=== PATIENT | female | born 1980 | race Two or more races ===

== ENCOUNTER 2017-03-07 13:05 | Emergency (ER) | payer BC ==
[~2017-03-07 13:05] MED LIST: BACTRIM DS TAB1 EAC2 PO; PRILOSEC OTC20 M1 PO
[2017-03-07 14:11] LABS: BASO % 0.1 % (0-2); EOS % 0.6 % (0-7); EOSINOPHIL ABSOLUTE COUNT 0.1 tho/cmm (0.0-0.7); HGB-HEMOGLOBIN 15.9 gm/dl (12.0-15.5); IMMATURE GRANULOCYTES ABSOLUTE 0.06 tho/cmm (0-0.03); IMMATURE GRANULOCYTES PERCENT 0.4 % (0-0.3); LYMPH % 4.4 % (20-45); LYMPH ABSOLUTE COUNT 0.7 tho/cmm (0.8-4.5); MCH (MEAN CORPUSCULAR HGB) 30.4 pg (28.0-32.0); MCHC MEAN CORPUSCULAR HGB CONC 35.3 % (32.0-36.0); MEAN PLATELET VOLUME 10.2 cmc (9.4-12.4); MONO % 4.4 % (0-12); MONOCYTE ABSOLUTE COUNT 0.7 tho/cmm (0.0-1.2); NEUTROPHIL ABSOLUTE COUNT 14.4 tho/cmm (1.6-8.0); NEUTROPHIL-AUTOMATED 14.4 tho/cmm (1.6-8.0); NEUTROPHILS % 90.1 % (40-80); PLATELET COUNT 251 tho/cmm (150-450); RED BLOOD COUNT 5.23 mil/cmm (4.00-5.20); RED CELL DISTRIBUTION WIDTH 12.6 % (12.4-16.4)
[2017-03-07 14:31] LABS: ALBUMIN 4.5 g/dl (3.5-5.0); ALKALINE PHOSPHATASE 79 U/L (33-138); ALT/SGPT 26 U/L (12-78); ANION GAP 14 mmol/L (0-20); AST/SGOT 19 U/L (10-40); BILIRUBIN,TOTAL 0.4 mg/dl (0-1.5); BLOOD UREA NITROGEN 17 mg/dl (6-24); C-REACTIVE PROTEIN 0.5 mg/dl (0-0.9); CALCIUM 9.2 mg/dl (8.5-10.5); CARBON DIOXIDE-VENOUS 21 mmol/L (22-32); CHLORIDE 108 mmol/l (96-110); GLUCOSE 136 mg/dL (70-110); LIPASE 107 U/L (73-393); POTASSIUM 4.4 mmol/L (3.7-5.1); SODIUM 139 mmol/L (135-145); eGFR VALUE FOR BLACK >90 mL/Min
[2017-03-07 14:35] LABS: PREGNANCY-SERUM NEGATIVE (NEGATIVE)
[2017-03-07 14:49] LABS: URINE BILIRUBIN NEGATIVE (NEG); URINE BLOOD MODERATE (NEG); URINE GLUCOSE (UA) NEGATIVE (NEG); URINE KETONE NEGATIVE (NEG); URINE LEUKOCYTE ESTERASE POSITIVE (NEG); URINE NITRITE NEGATIVE (NEG); URINE PROTEIN MODERATE (NEG); URINE SPECIFIC GRAVITY 1.025 (1.003-1.030)
[2017-03-07 14:59] LABS: URINE COLOR YELLOW
[2017-03-07 15:00] LABS: URINE APPEARANCE HAZY; URINE RBC RARE /[HPF] (0-5)
[2017-03-07 15:01] LABS: URINE BACTERIA 3+; URINE EPITHELIAL CELLS 0-4 /[HPF] (0-10); URINE MUCUS 2+
[2017-03-07] MEDS ORDERED: ZOFRAN4 M2 PO (15:27)
== END 2017-03-07 15:32 ==
LOC: EDMED 13:05
PROVIDERS: Family Medicine
DX: R10.13 Epigastric pain (principal); R19.7 Diarrhea, unspecified; R11.10 Vomiting, unspecified; K21.9 Gastro-esophageal reflux disease without esophagitis
CPT/HCPCS: C9113; J2270; J2405; J7030; Q9967